=== PATIENT | male | born 1950 | race Caucasian/White ===

== ENCOUNTER 2018-04-26 19:56 | Inpatient (IN) | payer MEDICARE, OTHER ==
[~2018-04-26] VITALS: Ht 170.2 cm; Wt 71.2 kg
--- NOTE | 2018-04-26 20:58 | NUR ---
PT BIBSELF C/O NEEDING INSULIN PER PT, HE IS DIABETIC; PT AAOX4, RESPIRATIONS EVEN AND UNLABORED, NO SOB, NAD NOTED, VSS, PENDING ER PROVIDER JORJE
[2018-04-26 21:58] LABS: APPEARANCE,URINE Clear (CLEAR); BASOPHILS % (AUTO) 0.6 % (0.0-2.0); BILIRUBIN,URINE Negative (NEGATIVE); BLOOD, URINE Trace-lysed Ery/uL (NEGATIVE); COLOR,URINE Yellow (YELLOW); EOSINOPHILS % (AUTO) 3.1 % (0.0-6.0); HEMATOCRIT 41 % (39-51); HEMOGLOBIN 13.6 g/dL (13.5-17.5); KETONES,URINE Trace (NEGATIVE); LEUKOCYTE ESTERASE ,URINE Negative (NEGATIVE); LYMPHOCYTES # (AUTO) 0.9 /CMM (0.8-4.8); LYMPHOCYTES % (AUTO) 11.8 % (20.0-44.0); MEAN CORPUSCULAR HGB CONC 33 g/dl (31.0-36.0); MEAN CORPUSCULAR VOLUME 92 fL (80-96); MONOCYTES # (AUTO) 0.8 /CMM (0.1-1.30); MONOCYTES % (AUTO) 10.3 % (2.0-12.0); NEUTROPHILS # (AUTO) 5.6 /CMM (1.8-8.9); NEUTROPHILS % (AUTO) 74.2 % (43.0-81.0); NITRITE, URINE Negative (NEGATIVE); PLATELET COUNT (AUTO) 236 /CMM (150-450); PROTEIN,URINE 100 mg/dl (NEGATIVE); RED BLOOD CELL COUNT(AUTO) 4.52 MIL/uL (4.5-6.0); UGLUCOSE 100 MG/DL mg/dL (NEGATIVE); WHITE BLOOD COUNT (AUTO) 7.6 K/uL (4.3-11.0)
[2018-04-26 22:05] LABS: CALCIUM, SERUM 8.2 mg/dL (8.5-10.1); CREATININE 1.7 mg/dL (0.6-1.3)
[2018-04-26 22:20] LABS: BACTERIA,URINE Few /HPF (None Seen); RBC,URINE 0-2 /HPF (0-2); SQUAMOUS EPITHELIAL CELL,UR Rare /HPF (None Seen)
--- NOTE | 2018-04-26 22:20 | NUR ---
CLAUDIA WAS PAGED.
[2018-04-26] MEDS ORDERED: IV NS 0.9% 500 ML BAG IV ONE (22:30)
--- NOTE | 2018-04-26 22:35 | NUR ---
PT IS GOING TO 307-2
--- NOTE | 2018-04-26 22:56 | NUR ---
REPORT GIVEN TO ROKC VILLAR FOR NADEEM
--- NOTE | 2018-04-26 23:12 | NUR ---
PT TRANSPORTED TO 3RD FLOOR MS/TELE VIA GURNEY WITH AUTOMOTIVE ALIGNMENT SPECIALIST
[2018-04-26 23:15] VITALS: BP 105/64
--- NOTE | 2018-04-26 23:15 | NUR ---
MS STOCK ORDER LISTER NOTES Patient came to unit via [place], alert, oriented x 4. Breathing even and unlabored. Not in any distress. No complaints as of this time. Patient received with peripheral IV at LAC g#20. Patient is homeless and reports that he uses a walker. Instructed patient to call for assistance. Patient states that he wears a diaper, offered a urinal but declines. Skin assessment done. Patient has sacral redness/ diaper rash- washed with soap and water, kept clean and dry. Patient has also redness in both legs, bilateral foot/heel dryness and cracked heels, and elbow scab. Pictures attached to chart. Wound consult done. Oriented to call paul, placed within easy reach. Bed in lowest, locked position. Will continue to monitor accordingly Addendum: 04/27/18 at 0225 by ROLO WHITAKER RN ADDITIONAL NOTES: Patient does not smoke. Says he quit 10 years ago. He also denies drinking, said he quit 30yrs ago. Patient refuses flu and pneumonia vaccine for fear of getting flu and having adverse reactions. Stated that he had both before and ended up getting flu and pneumonia
[2018-04-26] MEDS ORDERED: Z GUARD REMEDY 2 OZ OINT TP PRN (23:30)
[2018-04-26] MEDS ORDERED: DEXTROSE 50%-WATER 50 ML DISP.SYRIN IV PRN (23:30)
[2018-04-26] MEDS ORDERED: ONDANSETRON HCL/PF 4 MG/2 ML VIAL IVP PRN (23:30)
[2018-04-26] MEDS ORDERED: ZOLPIDEM TARTRATE 5 MG TABLET PO PRN (23:30)
[2018-04-26] MEDS ORDERED: ACETAMINOPHEN 325 MG TABLET PO PRN (23:30)
[2018-04-26] MEDS ORDERED: HYDROMORPHONE INJ 2 MG/ML DISP.SYRIN IV PRN (23:30)
[2018-04-26] MEDS ORDERED: LORAZEPAM INJ 2 MG/ML VIAL IV PRN (23:30)
[2018-04-26] MEDS ORDERED: MAG HYDROX/AL HYDROX/SIMETH 30 ML UDC PO PRN (23:30)
[2018-04-26] MEDS ORDERED: HYDROCODONE/APAP 5/325MG 1 EACH TABLET PO PRN (23:30)
[2018-04-26] MEDS ORDERED: CLONIDINE HCL 0.1 MG TABLET PO PRN (23:30)
[2018-04-26] MEDS ORDERED: MAGNESIUM HYDROXIDE 30 ML UDC PO PRN (23:30)
[2018-04-27] MEDS: BLOOD SUGAR DIAGNOSTIC 1 EACH STRIP IN SCH ×5 (00:12→21:42)
[2018-04-27] MEDS: INSULIN REGULAR, HUMAN 100 UNIT/ML 3 ML VIAL SQ PRN ×4 (00:16→21:45)
--- NOTE | 2018-04-27 00:16 | NUR ---
RN NOTES BSL checked- 134mg/dL. Insulin 2units given per sliding scale. Patient provided with snacks
[2018-04-27] MEDS: IV NS 0.9% 1,000 ML IV PRN ×2 (00:18→21:51)
--- NOTE | 2018-04-27 06:43 | NUR ---
RN NOTES BSL- 130mg/dL. No insulin coverage as per sliding scale
[2018-04-27 06:49] LABS: BASOPHILS % (AUTO) 0.6 % (0.0-2.0); EOSINOPHILS % (AUTO) 4.7 % (0.0-6.0); HEMATOCRIT 37 % (39-51); HEMOGLOBIN 12.1 g/dL (13.5-17.5); LYMPHOCYTES # (AUTO) 0.9 /CMM (0.8-4.8); LYMPHOCYTES % (AUTO) 16.9 % (20.0-44.0); MEAN CORPUSCULAR HGB CONC 33 g/dl (31.0-36.0); MEAN CORPUSCULAR VOLUME 91 fL (80-96); MONOCYTES # (AUTO) 0.7 /CMM (0.1-1.30); MONOCYTES % (AUTO) 12.8 % (2.0-12.0); NEUTROPHILS # (AUTO) 3.6 /CMM (1.8-8.9); PLATELET COUNT (AUTO) 220 /CMM (150-450); RED BLOOD CELL COUNT(AUTO) 4.06 MIL/uL (4.5-6.0); WHITE BLOOD COUNT (AUTO) 5.5 K/uL (4.3-11.0)
[2018-04-27 07:01] LABS: ALBUMIN 2.6 g/dL (3.4-5.0); BILIRUBIN,TOTAL 0.3 mg/dL (0.2-1.0); CALCIUM, SERUM 7.8 mg/dL (8.5-10.1); CREATININE 1.8 mg/dL (0.6-1.3); MAGNESIUM 1.8 mg/dL (1.8-2.4); PHOSPHORUS 3.1 mg/dL (2.5-4.9); POTASSIUM 3.8 mmol/L (3.5-5.1); TOTAL PROTEIN, SERUM 5.8 g/dL (6.4-8.2)
--- NOTE | 2018-04-27 07:28 | NUR ---
RN CLOSING NOTES Patient in bed, alert, oriented x 4. No acute changes overnight. Peripheral IV infusing at 100 mL/hr. All needs attended to. All due medications given as ordered. Safety measures in place, call paul within reach. Bed in low, locked position. Endorsed NADEEM to oncoming RN.
--- NOTE | 2018-04-27 07:45 | NUR ---
m/s intelligence group supervisor: nephro consult seen by dr. smallwood. continue iv fluids as ordered. will continue to monitor.
[2018-04-27 08:00] VITALS: BP_SYST 122; BP_SYST 87; BP_DIAS 58; BP_DIAS 76
--- NOTE | 2018-04-27 08:25 | NUR ---
m/s transfer car operator drier: md visit seen and examined by dr. atkinson with new orders. orders acknowledged.
[2018-04-27] MEDS: PANTOPRAZOLE 40 MG VIAL IV SCH (09:42)
[2018-04-27] MEDS: HEPARIN SODIUM, PORCINE 5000 UNITS/1 ML VIAL SQ SCH ×2 (09:44→21:45)
--- NOTE | 2018-04-27 10:30 | NUR ---
m/s android ui developer: notes noted bed bugs while wound nurse doing study on pt on bed-1. infection control and evs notified and made aware. teaching provided by infection control and environmental services re: bed bugs. informed and teaching provided to pt that we need to clean the room and throw all his belongings due to bed bug noted and pt agreed.
[2018-04-27] MEDS ORDERED: DIVA500T2 PO (11:15)
[2018-04-27] MEDS ORDERED: FURO-145 PO (11:15)
--- NOTE | 2018-04-27 11:50 | NUR ---
m/s blister packing machine tender: notes pt showered and move him to room [facility] with his wallet and watch. Addendum: 04/27/18 at 1447 by PRASHANTH FERREIRA LVN cleanse pt's wallet and watch with sanitizing Addendum: 04/27/18 at 1447 by PRASHANTH FERREIRA LVN cleanse pt's wallet and watch with sani-cloth wipes prior to moving pt to room [facility].
--- NOTE | 2018-04-27 13:30 | NUR ---
m/s procedures rn: notes resting comfortable in bed. no distress noted.
--- NOTE | 2018-04-27 14:00 | NUR ---
m/s cosmetics machine operator: notes dr. atkinson notified thru exchange and informed md that pt home medications need to be reconcile with order to continue depakote 500mg po daily and hold lasix. orders read back and carried out.
--- NOTE | 2018-04-27 15:00 | NUR ---
m/s sight effects specialist: notes pt sounds asleep at this time. no distress noted. call light within reach.
[2018-04-27 16:00] VITALS: BP 122/76
--- NOTE | 2018-04-27 18:30 | NUR ---
m/s automotive brake specialist: notes resting comfortable in bed. no distress noted. needs attended. will continue to monitor.
--- NOTE | 2018-04-27 19:30 | NUR ---
RN MS OPENING NOTES RECEIVED PATIENT IN BED ASLEEP. EASILY AROUSABLE. ALERT AND ORIENTED X3, VERBALLY RESPONSIVE, ABLE TO MAKE NEEDS KNOWN. BREATHING EVEN AND UNLABORED. NO SOB NOTED. TOLERATING ROOM AIR. NO COMPLAINTS OF PAIN OR DISCOMFORT. NO FACIAL GRIMACING. IV ON LEFT AC #20 INTACT AND PATENT. SKIN DRY AND WARM TO TOUCH. AFEBRILE. ALL OTHER NEEDS ATTENDED TO. SAFETY MEASURES IN PLACE. CALL LIGHT WITHIN REACH. WILL CONTINUE TO MONITOR.
[2018-04-27 20:14] VITALS: BP 104/58
[2018-04-28] MEDS: BLOOD SUGAR DIAGNOSTIC 1 EACH STRIP IN SCH ×4 (06:54→21:24)
[2018-04-28] MEDS: INSULIN REGULAR, HUMAN 100 UNIT/ML 3 ML VIAL SQ PRN ×3 (06:55→21:26)
--- NOTE | 2018-04-28 07:14 | NUR ---
RN MS CLOSING NOTES PATIENT RESTING IN BED. NO ACUTE CHANGES THROUGHOUT SHIFT. BREATHING EVEN AND UNLABORED. NO SOB NOTED. TOLERATING ROOM AIR. NO COMPLAINTS OF PAIN OR DISCOMFORT. NO FACIAL GRIMACING. IV ON LEFT AC #20 INTACT AND PATENT WITH NS RUNNING AT 100ML/HR. SKIN DRY AND WARM TO TOUCH. AFEBRILE. ALL OTHER NEEDS ATTENDED TO. SAFETY MEASURES IN PLACE. CALL LIGHT WITHIN REACH. WILL ENDORSE TO ONCOMING NURSE FOR NADEEM.
[2018-04-28 07:18] LABS: BASOPHILS % (AUTO) 0.9 % (0.0-2.0); HEMATOCRIT 36 % (39-51); HEMOGLOBIN 11.6 g/dL (13.5-17.5); LYMPHOCYTES % (AUTO) 21.7 % (20.0-44.0); MEAN CORPUSCULAR HGB CONC 32 g/dl (31.0-36.0); MEAN CORPUSCULAR VOLUME 91 fL (80-96); MONOCYTES # (AUTO) 0.5 /CMM (0.1-1.30); MONOCYTES % (AUTO) 11.6 % (2.0-12.0); NEUTROPHILS # (AUTO) 2.9 /CMM (1.8-8.9); NEUTROPHILS % (AUTO) 61.8 % (43.0-81.0); PLATELET COUNT (AUTO) 183 /CMM (150-450); RED BLOOD CELL COUNT(AUTO) 3.91 MIL/uL (4.5-6.0); WHITE BLOOD COUNT (AUTO) 4.7 K/uL (4.3-11.0)
[2018-04-28 07:32] LABS: CALCIUM, SERUM 8.3 mg/dL (8.5-10.1); CREATININE 1.6 mg/dL (0.6-1.3); POTASSIUM 4.5 mmol/L (3.5-5.1)
[2018-04-28 08:00] VITALS: BP 125/61
[2018-04-28] MEDS: PANTOPRAZOLE 40 MG VIAL IV SCH (08:37)
[2018-04-28] MEDS: DIVALPROEX SODIUM 500 MG TABLET.DR PO SCH (09:23)
[2018-04-28] MEDS: HEPARIN SODIUM, PORCINE 5000 UNITS/1 ML VIAL SQ SCH ×2 (09:24→20:58)
--- NOTE | 2018-04-28 11:35 | NUR ---
IV PULLED OUT,RESTARTED LT. HAND WITH #22 ANGIO.
[2018-04-28] MEDS: IV NS 0.9% 1,000 ML IV PRN (13:34)
--- NOTE | 2018-04-28 14:37 | NUR ---
WOUND CARE CONSULT: PT PRESENTS WITH RT MEDIAL THIGH INCONTINENCE ASSOCIATED SKIN DAMAGE, PRESENT ON ADMISSION. PT IS INCONTINENT BUT IS INDEPENDENT WITH BED MOBILITY. RECOMMENDATIONS MADE FOR SKIN PROTECTION AND SKIN CARE. DISCUSSED WITH NURSING STAFF. WILL SEE PRN. COUCH IN AGREEMENT WITH PLAN OF CARE. Addendum: 04/28/18 at 1438 by JESSICA JANSEN WNDNU Amended: Links added.
[2018-04-28] MEDS ORDERED: MINERAL OIL/PETROLATUM,WHITE 120 GM JAR TP PRN (15:00)
[2018-04-28 16:00] VITALS: BP 136/81
[2018-04-28] MEDS: MUPIROCIN OINT 2% 22 GM TUBE SCH ×2 (16:31→20:55)
--- NOTE | 2018-04-28 17:59 | NUR ---
INFORMED BY [facility] PT. HAS MRSA NARES.BACTROBAN OINT. ORDERED.IN CONTACT ISOL.
[2018-04-28 18:50] VITALS: BP 148/91
--- NOTE | 2018-04-28 18:50 | NUR ---
PT. PUT OYSTER PREPARER LIGHT-C/O SOB.VS TAKEN.148/91HR 79,[id number]%.PT. REQUESTS BREATHING TX.NO BREATHING TX. ORDERED.HOB ELEVATED,PT. WAS LYING FLAT.CALL LIGHT WITHIN REACH.HX OF HEART SURG.X2 PT STATES, AND HAS PACEMAKER, HX OF LASIX USE.02 ON AT 3L.IV CURRENT RATE AT 75ML PER HR.HAS RHONCHI THROUGHOUT.DR. HOWELL CONTACTED,ORDERED CHEST X-RAY.NO FURTHER ORDERS GIVEN.TELETYPESETTER MONITOR INFORMED OF PT. STATUS.
--- NOTE | 2018-04-28 19:10 | NUR ---
PT. INFORMED OF CONVERSATION WITH MD AND ORDERS,A LITTLE ANXIOUS.
--- NOTE | 2018-04-28 19:20 | NUR ---
CHEST X-RAY DONE,AWAITING RESULTS.TO ENDORSE TO ELVIS.NURSE.
--- NOTE | 2018-04-28 19:30 | NUR ---
MS CLEMENCIA INITIAL NOTES RECEIVED REPORT FROM AM NURSE ROWENA AND SEEN PT IN BED AWAKE AND ALERT COMPLAINING OF PAIN ON HIS RIGHT UPPER INNER LEG AND BOTH OF HIS FOOT. PT ON 02 AT 2 LITERS VIA NC NOTICED COUGHING , RHONCHI NOTED UPON AUSCULTATION AND PATIENT ASKING FOR BREATHING TREATMENT . I TOLD HIM I WILL CHECKED IF THERE IS ORDER AND WILL CHECK ALSO THE RESULT OF HIS CHEST X-RAY. WITH IVF INFUSING WELL ON HIS LEFT HAND AND NOTICED HOLD FOR A WHILE BECAUSE OF CONGESTION. ENCOURAGED PT TO STAYED ON SITTING POSITION FOR A WHILE TO PREVENT HIM FROM SOB. KEPT HIM COMFORTABLE AT ALL TIMES. PLACE CALL LIGHT AT REACH. ISOLATION PRECAUTION IMPLEMENTED AND OBSERVED. WILL CONTINUE TO MONITOR.
--- NOTE | 2018-04-28 19:50 | NUR ---
MS CLEMENCIA NOTES NORCO TABLET GIVEN ORDERED. WILL RE-ASSESS LATER.
--- NOTE | 2018-04-28 20:40 | NUR ---
MS CLEMENCIA NOTES CALLED GROUNDS MANAGER MD BECAUSE PT COUGHING A LOT AND NOTED GETTING CONGESTED.SPOKE TO NICOLE JUNIOR /RESIDENTIAL FIELD MANAGER GOT ORDERED NOTED AND CARRIED OUT. CALLED RESPIRATORY THERAPY TO ADMINISTER BREATHING TREATMENT .
[2018-04-28 20:48] VITALS: BP 150/84
[2018-04-28] MEDS ORDERED: ALBUTEROL FS 2.5 MG/3 ML VIAL.NEB NEB PRN (21:00)
[2018-04-28] MEDS ORDERED: IPRATROPIUM NEB FS 0.5 MG/2.5 ML AMPUL.NEB NEB PRN (21:00)
--- NOTE | 2018-04-28 22:00 | NUR ---
MS CLEMENCIA NOTES BLOOD SUGAR 205, 4 UNITS OF INSULIN GIVEN ROBINA SQ ORDERED. SNACKS ALSO SERVED. PT SEEMS NOT IN ANY DISCOMFORT AND DISTRESS AFTER BREATHING TX AND PAIN MEDS GIVEN . WILL CONTINUE MONITORING. PLACE CALL LIGHT AT REACH.
--- NOTE | 2018-04-29 | NUR ---
MS CLEMENCIA NOTES PT SLEEPING COMFORTABLY IN BED WITHOUT ANY ACUTE DISTRESS NOTED. RESPIRATION EVEN AND UNLABORED KEPT HIM WARM AND COMFORTABLE AT ALL TIMES. WILL CONTINUE MONITORING. PLACE CALL LIGHT AT REACH. BED ALARM SET FOR SAFETY.
[2018-04-29] MEDS: BLOOD SUGAR DIAGNOSTIC 1 EACH STRIP IN SCH ×2 (06:15→11:21)
--- NOTE | 2018-04-29 06:15 | NUR ---
MS UI UX DEVELOPER NOTES' BLOOD SUGAR CHECKED DONE 123, NO SIGNS OF HYPO GLYCEMIA NOTED. NO INSULIN GIVEN . WILL CONTINUE MONITORING.
--- NOTE | 2018-04-29 07:26 | NUR ---
MS ANTI AIR WARFARE OPERATIONS OFFICER CLOSING NOTES PT BACK TO SLEEP AFTER MORNING CARE DONE WELL SKIN TREATMENT. BREATHING EVEN AND UNLABORED, NOT IN ANY ACUTE DISTRESS NOTED. ALL DUE MEDS GIVEN AND ALL NEEDS MET. KEPT HIM WARM AND COMFORTABLE AT ALL TIMES. ENDORSE TO AM NURSE.
--- NOTE | 2018-04-29 07:29 | NUR ---
MS RN OPENING NOTES RECEIVED PATIENT IN STABLE CONDITION. IN NO APPARENT DISTRESS. BEDSIDE RAILS ARE UPX2. BED IS LOCKED AND LOWERED. CALL LIGHT IS WITHIN REACH. IV LINE IS INTACT AND PATENT. WILL CONTINUE TO MONITOR PATIENT.
[2018-04-29 08:00] VITALS: BP 155/84
[2018-04-29] MEDS: DIVALPROEX SODIUM 500 MG TABLET.DR PO SCH (08:06)
[2018-04-29] MEDS: PANTOPRAZOLE 40 MG VIAL IV SCH (08:07)
[2018-04-29] MEDS: HEPARIN SODIUM, PORCINE 5000 UNITS/1 ML VIAL SQ SCH (08:10)
[2018-04-29] MEDS: MUPIROCIN OINT 2% 22 GM TUBE SCH (08:24)
[2018-04-29 11:03] LABS: BASOPHILS % (AUTO) 0.5 % (0.0-2.0); HEMATOCRIT 36 % (39-51); HEMOGLOBIN 11.7 g/dL (13.5-17.5); LYMPHOCYTES # (AUTO) 0.8 /CMM (0.8-4.8); LYMPHOCYTES % (AUTO) 14.7 % (20.0-44.0); MEAN CORPUSCULAR HGB CONC 33 g/dl (31.0-36.0); MEAN CORPUSCULAR VOLUME 92 fL (80-96); MONOCYTES # (AUTO) 0.5 /CMM (0.1-1.30); MONOCYTES % (AUTO) 9.1 % (2.0-12.0); NEUTROPHILS # (AUTO) 3.9 /CMM (1.8-8.9); NEUTROPHILS % (AUTO) 71.7 % (43.0-81.0); PLATELET COUNT (AUTO) 183 /CMM (150-450); RED BLOOD CELL COUNT(AUTO) 3.93 MIL/uL (4.5-6.0); WHITE BLOOD COUNT (AUTO) 5.4 K/uL (4.3-11.0)
[2018-04-29 11:09] LABS: CALCIUM, SERUM 8.3 mg/dL (8.5-10.1); CREATININE 1.7 mg/dL (0.6-1.3); POTASSIUM 4.5 mmol/L (3.5-5.1)
[2018-04-29] MEDS: INSULIN REGULAR, HUMAN 100 UNIT/ML 3 ML VIAL SQ PRN (11:22)
--- NOTE | 2018-04-29 15:38 | NUR ---
PATIENT IS REFUSING DISCHARGE. STATES HE WANTS TO SPEAK TO ELECTRICAL PARTS RECONDITIONER. CONTACTED CASE MANAGEMENT. CASE MANAGEMENT WILL SPEAK TO THE PATIENT.
--- NOTE | 2018-04-29 15:38 | NUR ---
PATIENT REFUSED TO HAVE PICTURES TAKEN FROM HIS LEFT HEEL, SACRAL AREA AND PERINEUM. PATIENT STATES "THERES NOTHING WRONG WITH THEM." EXPLAINED THE REASON WHY WE ARE TAKING DISCHARGE PICTURES. PATIENT CONTINUES TO REFUSE.
[2018-04-29 16:00] VITALS: BP 172/97
--- NOTE | 2018-04-29 17:10 | NUR ---
MS REEL HOOKER NOTES DISCHARGED PATIENT IN STABLE CONDITION. IN NO APPARENT DISTRESS. IV LINE AND ID BAND WAS REMOVED. ALL NEEDS WERE MET. EXITCARE WAS SIGNED AND PROVIDED TO 4 SEASONS. BELONGINGS WERE CHECKED AND GIVEN TO THE PATIENT. REPORT GIVEN TO 4 SEASONS. PATIENT WAS ESCORTED OUT OF THE FACILITY VIA GURNEY BY EMT.
[2018-05-17] MEDS ORDERED: BISA10SU11 RC (07:36)
[2018-05-20] MEDS ORDERED: LEVO500T2 PO (10:52)
== END 2018-04-29 17:09 | DRG 674 ==
LOC: ER 20:01 → MED 22:44
PROVIDERS: ADMIT Nurse Practitioner Acute Care; ATTEND Internal Medicine
PROC: 0JBR0ZZ Excision of Left Foot Subcutaneous Tissue and Fascia, Open Approach (ICD-10-PCS; principal; 2018-04-29)
DX: N17.0 Acute kidney failure with tubular necrosis (principal); I50.32 Chronic diastolic (congestive) heart failure; I13.0 Hypertensive heart and chronic kidney disease with heart failure and stage 1 through stage 4 chronic kidney disease, or unspecified chronic kidney disease; L97.428 Non-pressure chronic ulcer of left heel and midfoot with other specified severity; D68.59 Other primary thrombophilia; E86.0 Dehydration; G40.909 Epilepsy, unspecified, not intractable, without status epilepticus; N18.9 Chronic kidney disease, unspecified; E11.22 Type 2 diabetes mellitus with diabetic chronic kidney disease; R53.1 Weakness; E83.51 Hypocalcemia; Z59.0 Homelessness; L60.3 Nail dystrophy; L85.3 Xerosis cutis; Z79.4 Long term (current) use of insulin; E11.21 Type 2 diabetes mellitus with diabetic nephropathy; E11.65 Type 2 diabetes mellitus with hyperglycemia; E88.09 Other disorders of plasma-protein metabolism, not elsewhere classified; L98.8 Other specified disorders of the skin and subcutaneous tissue; L30.4 Erythema intertrigo; S71.101A Unspecified open wound, right thigh, initial encounter; S81.001A Unspecified open wound, right knee, initial encounter; X58.XXXA Exposure to other specified factors, initial encounter; Y93.9 Activity, unspecified; Y92.9 Unspecified place or not applicable
CPT/HCPCS: 36415; 71045-TC; 80048-TC; 80053-TC; 80061-TC; 81000-TC; 82962-TC; 83735-TC; 84100-TC; 85025-TC; 87081-TC; C9113; G0378; J1644; J1815; J7030; J7040

== ENCOUNTER 2018-05-16 22:24 | Inpatient (IN) | payer MEDICARE, OTHER ==
[~2018-05-16] VITALS: Ht 170.2 cm; Wt 69.9 kg
[~2018-05-16 22:24] MED LIST: DIVA500T2 PO; FURO-145 PO
--- NOTE | 2018-05-16 23:05 | NUR ---
PT BIB PA WITH A C/O AMS. PT IS ANSWERING QUESTIONS, BUT APPEARS UPSET. PT IS COOPERATIVE AND AMBULATED TO THE BATHROOM WITH A STEADY GAIT. PT WAS TREATED FALL RISK WHILE AMBULATING, A PRECAUTION. PT WAS PLACED ON THE MONITOR AND CONTINUOUS PULSE OX.
[2018-05-16 23:15] LABS: BASOPHILS # (AUTO) 0.1 /CMM (0.0-0.2); BASOPHILS % (AUTO) 1.1 % (0.0-2.0); EOSINOPHILS % (AUTO) 5.2 % (0.0-6.0); HEMATOCRIT 40 % (39-51); HEMOGLOBIN 13.4 g/dL (13.5-17.5); LYMPHOCYTES # (AUTO) 1.2 /CMM (0.8-4.8); LYMPHOCYTES % (AUTO) 22.1 % (20.0-44.0); MEAN CORPUSCULAR HGB CONC 33 g/dl (31.0-36.0); MEAN CORPUSCULAR VOLUME 91 fL (80-96); MONOCYTES # (AUTO) 0.4 /CMM (0.1-1.30); MONOCYTES % (AUTO) 7.9 % (2.0-12.0); NEUTROPHILS # (AUTO) 3.5 /CMM (1.8-8.9); NEUTROPHILS % (AUTO) 63.7 % (43.0-81.0); PLATELET COUNT (AUTO) 242 /CMM (150-450); RED BLOOD CELL COUNT(AUTO) 4.45 MIL/uL (4.5-6.0); WHITE BLOOD COUNT (AUTO) 5.5 K/uL (4.3-11.0)
--- NOTE | 2018-05-16 23:15 | NUR ---
GOT TELE BED 110
[2018-05-16 23:20] LABS: APPEARANCE,URINE CLEAR (CLEAR); BILIRUBIN,URINE NEGATIVE (NEGATIVE); BLOOD, URINE NEGATIVE Ery/uL (NEGATIVE); COLOR,URINE YELLOW (YELLOW); KETONES,URINE NEGATIVE (NEGATIVE); LEUKOCYTE ESTERASE ,URINE NEGATIVE (NEGATIVE); NITRITE, URINE NEGATIVE (NEGATIVE); PROTEIN,URINE TRACE mg/dl (NEGATIVE); UGLUCOSE NEGATIVE (NEGATIVE); UROBILINOGEN,URINE 0.2 EU/dL (0.2)
[2018-05-16 23:25] LABS: BACTERIA,URINE Few /HPF (None Seen); RBC,URINE 0-2 /HPF (0-2); SQUAMOUS EPITHELIAL CELL,UR Rare /HPF (None Seen); WBC,URINE 0-2 /HPF (0-3)
--- NOTE | 2018-05-16 23:46 | NUR ---
REPORT GIVEN TO ROCK TRUONG/CHG
[2018-05-17] VITALS (7 sets, daily range): BP systolic 125–153; BP diastolic 67–86
[2018-05-17 00:10] LABS: CALCIUM, SERUM 8.4 mg/dL (8.5-10.1); CREATININE 1.6 mg/dL (0.6-1.3); POTASSIUM 4.7 mmol/L (3.5-5.1)
[2018-05-17 00:25] LABS: ALBUMIN 3.3 g/dL (3.4-5.0); BILIRUBIN,DIRECT 0.1 mg/dL (0.0-0.2); BILIRUBIN,TOTAL 0.2 mg/dL (0.2-1.0); TOTAL PROTEIN, SERUM 6.9 g/dL (6.4-8.2)
[2018-05-17] MEDS ORDERED: MAGNESIUM HYDROXIDE 30 ML UDC PO PRN (00:30)
[2018-05-17] MEDS ORDERED: DEXTROSE 50%-WATER 50 ML DISP.SYRIN IV PRN (00:30)
[2018-05-17] MEDS ORDERED: ONDANSETRON HCL/PF 4 MG/2 ML VIAL IVP PRN (00:30)
[2018-05-17] MEDS ORDERED: MAG HYDROX/AL HYDROX/SIMETH 30 ML UDC PO PRN (00:30)
[2018-05-17] MEDS ORDERED: LORAZEPAM 1 MG TABLET PO PRN (00:30)
[2018-05-17] MEDS ORDERED: TEMAZEPAM 15 MG CAPSULE PO PRN (00:30)
--- NOTE | 2018-05-17 00:50 | NUR ---
ADMINISTRATOR PESTICIDE ADMISSION NOTES RECEIVED PATIENT FROM ER VIA S[facility]. DX. ACUTE ENCEPHALOPATHY - POSSIBLY METABOLIC. PATIENT IS ALERT AND ORIENTED X3, VERBALLY RESPONSIVE, ABLE TO MAKE NEEDS KNOWN. BREATHING EVEN AND UNLABORED. NO SOB NOTED. TOLERATING ROOM AIR. NO COMPLAINTS OF PAIN OR DISCOMFORT. NO FACIAL GRIMACING. IV ON RIGHT HAND G#18 INTACT AND PATENT. SKIN DRY AND WARM TO TOUCH. AFEBRILE. SKIN ASSESSMENT RENDERED WITH PICTURES TAKEN AND PLACED IN CHART. BELONGINGS ACCOUNTED FOR. ORIENTED TO THE USE OF UNIT AMENITIES. SAFETY MEASURES IN PLACE. CALL LIGHT WITHIN REACH. WILL CONTINUE TO MONITOR.
[2018-05-17] MEDS ORDERED: IV NS 0.9% 1,000 ML BAG IV ONE (01:00)
[2018-05-17] MEDS ORDERED: MULT-1185 PO (01:58)
[2018-05-17] MEDS ORDERED: AMIN30LI25 PO (01:58)
[2018-05-17] MEDS ORDERED: ALBU2.5V13 NEB (01:58)
[2018-05-17] MEDS ORDERED: DIVA500T4 PO (01:58)
[2018-05-17] MEDS ORDERED: IPRA0.2S9 IH (01:58)
[2018-05-17] MEDS ORDERED: CRAN1CAP6 PO (01:58)
[2018-05-17] MEDS ORDERED: SENN-168 PO (01:58)
[2018-05-17] MEDS: BLOOD SUGAR DIAGNOSTIC 1 EACH STRIP IN SCH ×4 (06:31→21:28)
[2018-05-17] MEDS: INSULIN REGULAR, HUMAN 100 UNIT/ML 3 ML VIAL SQ PRN (06:32)
--- NOTE | 2018-05-17 06:54 | NUR ---
BUGGY DRIVER CLOSING NOTES PATIENT RESTING IN BED. NO ACUTE CHANGES THROUGHOUT SHIFT. BREATHING EVEN AND UNLABORED. TOLERATING ROOM AIR. NO SOB. NO COMPLAINTS OF PAIN OR DISCOMFORT. NO FACIAL GRIMACING. IV ON RIGHT HAND INTACT AND PATENT. SKIN DRY AND WARM TO TOUCH. AFEBRILE. KEPT CLEAN DRY AND COMFORTABLE. ALL OTHER NEEDS ATTENDED TO. SAFETY MEASURES IN PLACE. CALL LIGHT WITHIN REACH. WILL ENDORSE TO ONCOMING NURSE FOR NADEEM.
[2018-05-17] MEDS ORDERED: NA P133E RC (07:36)
[2018-05-17] MEDS ORDERED: BISA10SU8 RC (07:36)
[2018-05-17] MEDS ORDERED: ACET-868 PO (07:36)
[2018-05-17] MEDS ORDERED: ACET-2605 PO (07:36)
[2018-05-17] MEDS ORDERED: MAGN400O6 PO (07:36)
[2018-05-17] MEDS ORDERED: BLOO-668 IN (07:36)
[2018-05-17] MEDS: PANTOPRAZOLE 40 MG TABLET.DR PO SCH (08:12)
--- NOTE | 2018-05-17 08:42 | NUR ---
BINDER TECHNICIAN OPENING NOTES PATIENT RECEIVED AWAKE AND IN BED. A/O X 2-3. NO ACUTE DISTRESS, BREATHING EVEN AND UNLABORED, TOLERATING ROOM AIR. NO SOB. NO COMPLAINTS OF PAIN OR DISCOMFORT. NO FACIAL GRIMACING. RH IV INTACT AND PATENT SKIN DRY AND WARM TO TOUCH. AFEBRILE. CLEAN DRY AND COMFORTABLE. SAFETY MEASURES IN PLACE. BED IN LOW LOCKED POSITION, CALL LIGHT WITHIN REACH. WILL CONTINUE TO MONITOR.
[2018-05-17] MEDS ORDERED: NS 0.9% IV ONE (15:00)
[2018-05-17] MEDS ORDERED: BISACODYL SUPP (10 MG) 10 MG/SUPP.RECT SUPP.RECT RC PRN (15:00)
[2018-05-17] MEDS ORDERED: VALPROATE IV ONE (15:00)
[2018-05-17] MEDS ORDERED: IPRATROPIUM NEB FS 0.5 MG/2.5 ML AMPUL.NEB IH PRN (15:00)
[2018-05-17] MEDS ORDERED: NA PHOS,M-B/NA PHOS,DI-BA 1 EA ENEMA RC PRN (15:00)
[2018-05-17] MEDS ORDERED: ALBUTEROL FS 2.5 MG/0.5 ML VIAL.NEB NEB PRN (15:00)
[2018-05-17] MEDS: PROSTAT (PYXIS) 30 ML UDC PO SCH (17:56)
--- NOTE | 2018-05-17 20:46 | NUR ---
QUALITY IMPROVEMENT COORDINATOR (RN) NOTES RECEIVED PT ON BED. ON ROOM AIR, NO RESPIRATORY DISTRESS NOTED. ON TELE MONITOR A PACING. IV ACCESS RIGHT HANG G18, LOOSE, DANGLING, IV ACCESS REMOVED, NO BLEEDING NOTED. PER PT INSERT IV LATER. SEIZURE PRECAUTION OBSERVED, HEAD OF BED ELEVATED. SIDE RAILS UP. CALL LIGHT WITHIN REACH. BED ALARM ON. WILL CONTINUE TO MONITOR PT CLOSELY.
--- NOTE | 2018-05-17 20:48 | NUR ---
MORNING SHOW NEWSCAST PRODUCER CLOSING NOTES PATIENT RESTING IN BED. NO ACUTE CHANGES THROUGHOUT SHIFT. BREATHING EVEN AND UNLABORED. TOLERATING ROOM AIR. NO SOB. NO COMPLAINTS OF PAIN OR DISCOMFORT. NO FACIAL GRIMACING. IV ON RIGHT HAND INTACT AND PATENT. SKIN DRY AND WARM TO TOUCH. AFEBRILE. KEPT CLEAN DRY AND COMFORTABLE. ALL OTHER NEEDS ATTENDED TO. SAFETY MEASURES IN PLACE. CALL LIGHT WITHIN REACH. WILL ENDORSE TO ONCOMING NURSE FOR NADEEM.
[2018-05-17] MEDS: SENNOSIDES 8.6 MG TABLET PO SCH (21:29)
--- NOTE | 2018-05-17 21:29 | NUR ---
INTERNET SALES CONSULTANT NOTES PT REFUSING INSULIN COVERAGE. EXPLAINED RISK AND BENEFITS. PT STILL REFUSED.
--- NOTE | 2018-05-17 21:34 | NUR ---
LEAD ORACLE DEVELOPER NOTES PRIMARY RN AND ASSET PROTECTION SPECIALIST UNABLE TO INSERT IV. PT REFUSED IV ACCESS THIS TIME. EXPLAINED RISK AND BENEFITS. PT STILL REFUSED. WILL ASK PT AGAIN LATER. WILL MONITOR PT CLOSELY.
--- NOTE | 2018-05-17 21:42 | NUR ---
PARLIAMENTARY COUNSEL NOTES UNABLE TO REACH NEUROLOGIST FOR DEPAKOTE ORDERS. CHARGE NURSE INFORMED.SEIZURE PRECAUTION OBSERVED. WILL MONITOR PT CLOSELY.
--- NOTE | 2018-05-17 22:45 | NUR ---
ON SITE WASTEWATER SYSTEMS TECHNICIAN NOTES PT REFUSING IV ACCESS. EX PLAINED RISK AND BENEFITS PT STILL REFUSED. DR HOWELL INFORMED.
[2018-05-18 04:00] VITALS: BP 129/74
--- NOTE | 2018-05-18 07:06 | NUR ---
WOUND CARE CONSULT WOUND CARE RECEIVED CONSULT FOR SACRAL REDNESS, ARNULFO AREA REDNESS AND BILATERAL LOWER EXTREMITY RASHES. WOUND CARE WILL DEFER CONSULT AND ALL TREATMENT PLANS TO PLASTIC SURGICAL TEAM WHO ARE CURRENTLY FOLLOWING THIS PATIENT. PATIENT WITH NEISHA AT 21, WILL SEE PRN.
--- NOTE | 2018-05-18 07:22 | NUR ---
MS RN NOTES NO ACUTE CHANGES NOTED DURING THE SHIFT. PROVIDED COMFORT AND SAFETY. REFUSING IV ACCESS AND LABORATORY .WILL ENDORSE TO THE AM NURSE FOR CONTINUITY OF CARE.
[2018-05-18] MEDS ORDERED: Z GUARD REMEDY 2 OZ OINT TP PRN (07:30)
--- NOTE | 2018-05-18 07:40 | NUR ---
MS WILKERSON OPENING NOTE RECEIVED PATIENT IN BED. ALERT ORIENTED X3. ON ROOM AIR, TOLERATING WELL. IN NO APPARENT DISTRESS OR DISCOMFORT AT THIS TIME. RESPIRATIONS EVEN AND UNLABORED. DENIES CHEST PAIN OR SOB. PATIENT IS ABLE TO COMMUNICATE NEEDS. NO IV ACCESS PRESENT, MD AWARE,. Addendum: 05/18/18 at 1053 by FRANCISCO NELSON RN PATIENT KEPT CLEAN AND COMFORTABLE, SAFETY MEASURES IN PLACE, BED IN LOW LOCKED POSITION SIDE RAILS UP X2, CALL LIGHT WITHIN EASY REACH. WILL CONTINUE TO MONITOR.
[2018-05-18 08:00] VITALS: BP_SYST 149; BP_DIAS 62; BP_DIAS 82
[2018-05-18 08:32] LABS: BASOPHILS # (AUTO) 0.1 /CMM (0.0-0.2); EOSINOPHILS % (AUTO) 6.6 % (0.0-6.0); HEMATOCRIT 43 % (39-51); HEMOGLOBIN 13.8 g/dL (13.5-17.5); LYMPHOCYTES # (AUTO) 1.2 /CMM (0.8-4.8); LYMPHOCYTES % (AUTO) 19.8 % (20.0-44.0); MEAN CORPUSCULAR HGB CONC 32 g/dl (31.0-36.0); MEAN CORPUSCULAR VOLUME 92 fL (80-96); MONOCYTES # (AUTO) 0.5 /CMM (0.1-1.30); NEUTROPHILS # (AUTO) 3.8 /CMM (1.8-8.9); NEUTROPHILS % (AUTO) 64.6 % (43.0-81.0); PLATELET COUNT (AUTO) 193 /CMM (150-450); RED BLOOD CELL COUNT(AUTO) 4.68 MIL/uL (4.5-6.0); WHITE BLOOD COUNT (AUTO) 5.9 K/uL (4.3-11.0)
[2018-05-18] MEDS: BLOOD SUGAR DIAGNOSTIC 1 EACH STRIP IN SCH ×4 (08:39→22:34)
[2018-05-18] MEDS: ACETAMINOPHEN 325 MG TABLET PO PRN (08:40)
[2018-05-18] MEDS: MULTIVIT W/MINERALS 1 TAB TABLET PO SCH (08:40)
[2018-05-18] MEDS: PANTOPRAZOLE 40 MG TABLET.DR PO SCH (08:40)
[2018-05-18] MEDS: Z GUARD REMEDY 2 OZ OINT TP SCH (08:41)
[2018-05-18] MEDS: PROSTAT (PYXIS) 30 ML UDC PO SCH ×2 (08:41→16:41)
[2018-05-18 08:47] LABS: ALBUMIN 3.2 g/dL (3.4-5.0); BILIRUBIN,TOTAL 0.3 mg/dL (0.2-1.0); CALCIUM, SERUM 8.5 mg/dL (8.5-10.1); CREATININE 1.4 mg/dL (0.6-1.3); MAGNESIUM 1.8 mg/dL (1.8-2.4); PHOSPHORUS 3.3 mg/dL (2.5-4.9); POTASSIUM 4.7 mmol/L (3.5-5.1)
[2018-05-18] MEDS: INSULIN REGULAR, HUMAN 100 UNIT/ML 3 ML VIAL SQ PRN ×2 (08:47→23:08)
[2018-05-18 08:50] LABS: THYROID STIMULATING HORMONE 6.863 uIU/mL (0.358-3.74)
[2018-05-18] MEDS ORDERED: Medication Not On Formulary EA (Vit C/Vitamin E Acetate/Cranb (Cranberry Concentrate Sof PO SCH (09:00)
[2018-05-18] MEDS ORDERED: DIVALPROEX SODIUM 250 MG TABLET.DR PO SCH (09:30)
[2018-05-18] MEDS ORDERED: VALPROATE 500 MG in IV NS 0.9% 100 ML IV ONE (12:00)
--- NOTE | 2018-05-18 12:39 | NUR ---
PER DR. ISLAS CHANGE ORDER FOR PICC LINE TO MIDLINE INSERTION. NOTED AND CARRIED OUT. HUMAN SERVICE TECHNICIAN FRANCISCO NOTIFIED. AWAITING MIDLINE INSERTION.
[2018-05-18] MEDS ORDERED: VALPROATE 500 MG in IV NS 0.9% 100 ML IV SCH (13:00)
[2018-05-18] MEDS: LEVOFLOXACIN (500MG) 500 MG TABLET PO SCH (13:03)
[2018-05-18] MEDS ORDERED: DIVALPROEX SODIUM 250 MG TABLET.DR PO ONE (13:30)
[2018-05-18 16:00] VITALS: BP 128/72
[2018-05-18] MEDS: DIVALPROEX SODIUM 250 MG TABLET.DR PO SCH (16:34)
--- NOTE | 2018-05-18 18:27 | NUR ---
MS RN CLOSING NOTE PATIENT IN BED. ALERT ORIENTED X3. ON ROOM AIR, TOLERATING WELL. IN NO APPARENT DISTRESS OR DISCOMFORT AT THIS TIME. RESPIRATIONS EVEN AND UNLABORED. DENIES CHEST PAIN OR SOB. PATIENT IS ABLE TO COMMUNICATE NEEDS. RIGHT UPPER ARM MIDLINE 18G IVC, SL, PATENT AND INTACT. PATIENT KEPT CLEAN AND COMFORTABLE, ALL NEEDS ATTENDED, ORDERS RENDERED, TUNRING AND REPOSITIONING REINFORCED PER PROTOCOL. SAFETY MEASURES IN PLACE, BED IN LOW LOCKED POSITION SIDE RAILS UP X2, CALL LIGHT WITHIN EASY REACH. WILL ENDORSE TO PM NURSE FOR NADEEM.
[2018-05-18 20:00] VITALS: BP 141/83
--- NOTE | 2018-05-18 20:00 | NUR ---
RUDY RN NOTE PATIENT IN BED. ALERT ORIENTED X3. ON ROOM AIR, TOLERATING WELL. IN NO APPARENT DISTRESS OR DISCOMFORT AT THIS TIME. RESPIRATIONS EVEN AND UNLABORED. DENIES CHEST PAIN OR SOB. PATIENT IS ABLE TO COMMUNICATE NEEDS. RIGHT UPPER ARM MIDLINE 18G IVC, SL, PATENT AND INTACT. SAFETY MEASURES IN PLACE, BED IN LOW LOCKED POSITION SIDE RAILS UP X2, CALL LIGHT WITHIN EASY REACH. WILL CONTINUE TO MONITOR PATIENT.
--- NOTE | 2018-05-18 22:20 | NUR ---
RN NOTES PATIENT IS STABLE , NO ACUTE CHANGES NOTED, NO SOB NOTES. PATIENT'S REPORT IS GIVEN TO CARLYN WILKERSON FOR FACTORER.
[2018-05-18] MEDS: SENNOSIDES 8.6 MG TABLET PO SCH (22:34)
--- NOTE | 2018-05-18 23:00 | NUR ---
MS RN NOTES Assume care of patient. Transferred patient to room 117-1 per CN. Patient remained stable, comfortable on bed. No discomfort noted at this time. Will continue to monitor accordingly.
[2018-05-19 04:00] VITALS: BP 130/89
[2018-05-19 06:28] LABS: BASOPHILS # (AUTO) 0.1 /CMM (0.0-0.2); BASOPHILS % (AUTO) 0.8 % (0.0-2.0); EOSINOPHILS % (AUTO) 6.4 % (0.0-6.0); HEMATOCRIT 43 % (39-51); HEMOGLOBIN 13.8 g/dL (13.5-17.5); LYMPHOCYTES # (AUTO) 1.4 /CMM (0.8-4.8); LYMPHOCYTES % (AUTO) 20.5 % (20.0-44.0); MEAN CORPUSCULAR HGB CONC 32 g/dl (31.0-36.0); MEAN CORPUSCULAR VOLUME 92 fL (80-96); MONOCYTES # (AUTO) 0.6 /CMM (0.1-1.30); MONOCYTES % (AUTO) 8.5 % (2.0-12.0); NEUTROPHILS # (AUTO) 4.2 /CMM (1.8-8.9); NEUTROPHILS % (AUTO) 63.8 % (43.0-81.0); PLATELET COUNT (AUTO) 221 /CMM (150-450); RED BLOOD CELL COUNT(AUTO) 4.66 MIL/uL (4.5-6.0); WHITE BLOOD COUNT (AUTO) 6.6 K/uL (4.3-11.0)
--- NOTE | 2018-05-19 06:31 | NUR ---
MS RN CLOSING NOTES Patient asleep on bed, no discomfort noted. Afebrile the whole shift, no new unusualities noted. All nursing needs attended. Kept bed low and locked. Call light at bedside. Endorsed to the next shift.
[2018-05-19 06:54] LABS: CALCIUM, SERUM 8.6 mg/dL (8.5-10.1); CREATININE 1.6 mg/dL (0.6-1.3); MAGNESIUM 1.9 mg/dL (1.8-2.4); PHOSPHORUS 3.6 mg/dL (2.5-4.9); POTASSIUM 4.6 mmol/L (3.5-5.1)
--- NOTE | 2018-05-19 07:00 | NUR ---
MS RN OPENING NOTES RECEIVED PT IN BED, A/O X3. PT ON RA, TOLERATING WELL. O2 SAT WNL. WOLF MIDLINE C/D/P/I. NO S/SX OF DISTRESS AT THIS TIME. ASPIRATION PRECAUTIONS MAINTAINED. HOB ELEVATED. LUNG SOUNDS CLEAR. ACTIVE BS. PERRLA. SKIN ON FEET NOTED TO BE FLAKY/DRY. EXTREMITIES OFFLOADED. PT TOLERATING DIET WELL AT THIS TIME. BED ALARM ON. CALL LIGHT IN REACH. WILL CONT TO MONITOR.
[2018-05-19] MEDS: BLOOD SUGAR DIAGNOSTIC 1 EACH STRIP IN SCH ×4 (07:44→22:21)
[2018-05-19 08:00] VITALS: BP 134/98
[2018-05-19] MEDS: MULTIVIT W/MINERALS 1 TAB TABLET PO SCH (08:31)
[2018-05-19] MEDS: DIVALPROEX SODIUM 250 MG TABLET.DR PO SCH ×2 (08:31→16:56)
[2018-05-19] MEDS: PANTOPRAZOLE 40 MG TABLET.DR PO SCH (08:31)
[2018-05-19] MEDS: Z GUARD REMEDY 2 OZ OINT TP SCH (08:36)
[2018-05-19] MEDS: PROSTAT (PYXIS) 30 ML UDC PO SCH ×2 (08:39→16:57)
[2018-05-19] MEDS: INSULIN REGULAR, HUMAN 100 UNIT/ML 3 ML VIAL SQ PRN ×2 (10:00→22:22)
[2018-05-19] MEDS: LEVOFLOXACIN (500MG) 500 MG TABLET PO SCH (11:40)
[2018-05-19 16:00] VITALS: BP 132/84
--- NOTE | 2018-05-19 18:31 | NUR ---
MS RN CLOSING NOTE PATIENT IN BED. ALERT ORIENTED X3. ON ROOM AIR, TOLERATING WELL. IN NO APPARENT DISTRESS OR DISCOMFORT AT THIS TIME. RESPIRATIONS EVEN AND UNLABORED. DENIES CHEST PAIN OR SOB. PATIENT IS ABLE TO COMMUNICATE NEEDS. RIGHT UPPER ARM MIDLINE 18G IVC, SL, PATENT AND INTACT. PATIENT KEPT CLEAN AND COMFORTABLE, ALL NEEDS ATTENDED. SAFETY MEASURES IN PLACE, BED IN LOW LOCKED POSITION SIDE RAILS UP X2, CALL LIGHT WITHIN EASY REACH. WILL ENDORSE TO PM NURSE FOR NADEEM.
--- NOTE | 2018-05-19 20:00 | NUR ---
MS RN NOTES RECEIVED PTS IN BED AWAKE A/OX3 FORGETFUL, ABLE TO MAKE NEEDS KNOWN, PTS IS AMBULATORY , V./S STABLE AFEBRILE ,ON MS STATUS PTS WITH NO SOB NO DISTRESS NOTED ,ON R/A SATING 96% ALL DUE MEDS GIVEN ORDERED , KEPT PTS CLEAN DRY AND COMFORTABLE .WILL CONTINUE TO MONITOR PTS.
[2018-05-19] MEDS: SENNOSIDES 8.6 MG TABLET PO SCH (22:19)
--- NOTE | 2018-05-20 02:00 | NUR ---
MS RN NOTES BLOOD SUGAR FOR 10PM IS 116 MG/DL NO COVERAGE GIVEN PER SLIDING SCALE . PTS ON PO DIET SNACKS SERVED.
[2018-05-20] MEDS: ACETAMINOPHEN 325 MG TABLET PO PRN (04:59)
--- NOTE | 2018-05-20 07:00 | NUR ---
MS RN OPENING NOTES RECEIVED PT IN BED, A/O X3. PT ON RA, TOLERATING WELL. O2 SAT WNL. WOLF MIDLINE C/D/P/I. NO S/SX OF DISTRESS AT THIS TIME. ASPIRATION PRECAUTIONS MAINTAINED. HOB ELEVATED. LUNG SOUNDS CLEAR. ACTIVE BS. PERRLA. EXTREMITIES OFFLOADED. PT TOLERATING DIET WELL AT THIS TIME. BED ALARM ON. CALL LIGHT IN REACH. WILL CONT TO MONITOR.
[2018-05-20] MEDS: PANTOPRAZOLE 40 MG TABLET.DR PO SCH (07:49)
[2018-05-20] MEDS: BLOOD SUGAR DIAGNOSTIC 1 EACH STRIP IN SCH ×2 (07:54→12:03)
[2018-05-20 08:53] LABS: BASOPHILS # (AUTO) 0.1 /CMM (0.0-0.2); BASOPHILS % (AUTO) 1.1 % (0.0-2.0); EOSINOPHILS % (AUTO) 8.5 % (0.0-6.0); HEMATOCRIT 44 % (39-51); HEMOGLOBIN 14.4 g/dL (13.5-17.5); LYMPHOCYTES # (AUTO) 1.4 /CMM (0.8-4.8); LYMPHOCYTES % (AUTO) 24.4 % (20.0-44.0); MEAN CORPUSCULAR HGB CONC 33 g/dl (31.0-36.0); MEAN CORPUSCULAR VOLUME 91 fL (80-96); MONOCYTES # (AUTO) 0.6 /CMM (0.1-1.30); MONOCYTES % (AUTO) 10.9 % (2.0-12.0); NEUTROPHILS # (AUTO) 3.1 /CMM (1.8-8.9); NEUTROPHILS % (AUTO) 55.1 % (43.0-81.0); PLATELET COUNT (AUTO) 234 /CMM (150-450); WHITE BLOOD COUNT (AUTO) 5.6 K/uL (4.3-11.0)
[2018-05-20] MEDS: PROSTAT (PYXIS) 30 ML UDC PO SCH (09:09)
[2018-05-20] MEDS: DIVALPROEX SODIUM 250 MG TABLET.DR PO SCH (09:09)
[2018-05-20] MEDS: MULTIVIT W/MINERALS 1 TAB TABLET PO SCH (09:09)
[2018-05-20] MEDS: Z GUARD REMEDY 2 OZ OINT TP SCH (09:18)
[2018-05-20 09:32] LABS: FREE PSA 0.8 ng/mL (0.00-45); PROSTATE SPECIFIC ANTIGEN SCR 4.79 ng/mL (0.00-4.00)
[2018-05-20 09:36] LABS: POTASSIUM 4.7 mmol/L (3.5-5.1)
[2018-05-20 09:37] LABS: ALBUMIN 3.3 g/dL (3.4-5.0); BILIRUBIN,TOTAL 0.4 mg/dL (0.2-1.0); CALCIUM, SERUM 8.8 mg/dL (8.5-10.1); CREATININE 1.7 mg/dL (0.6-1.3); MAGNESIUM 1.9 mg/dL (1.8-2.4); PHOSPHORUS 3.7 mg/dL (2.5-4.9); TOTAL PROTEIN, SERUM 7.2 g/dL (6.4-8.2)
[2018-05-20] MEDS ORDERED: LEVO500T2 PO (10:52)
[2018-05-20] MEDS: LEVOFLOXACIN (500MG) 500 MG TABLET PO SCH (12:25)
--- NOTE | 2018-05-20 14:25 | NUR ---
MS RN NOTES REPORT CALLED TO ROCK LIN AT [facility] FOR TRANSFER TO SNF
--- NOTE | 2018-05-20 14:35 | NUR ---
MS RN NOTES PT LEFT ON GURNEY WITH AMBULANCE CREW. ID BAND/MIDLINE REMOVED. VS WNL. NO S/SX OF DISTRESS NOTED. [id number] WITH PATIENT. ALL NEEDS ATTENDED TO.
[2018-05-20] MEDS ORDERED: VALPROATE 500 MG in IV NS 0.9% 100 ML IV STA (15:00)
[2018-05-20] MEDS ORDERED: DIVALPROEX SODIUM 250 MG TABLET.DR PO SCH (22:00)
== END 2018-05-20 15:57 | DRG 682 ==
LOC: ER 22:26 → TELE1 23:18 → MEDSG1 05-18 06:00
PROVIDERS: ADMIT Nurse Practitioner Acute Care; ATTEND Nurse Practitioner Acute Care
PROC: 05H533Z Insertion of Infusion Device into Right Subclavian Vein, Percutaneous Approach (ICD-10-PCS; principal; 2018-05-18)
PROC: B546ZZA Ultrasonography of Right Subclavian Vein, Guidance (ICD-10-PCS; 2018-05-18)
DX: N17.0 Acute kidney failure with tubular necrosis (principal); J15.9 Unspecified bacterial pneumonia; G93.41 Metabolic encephalopathy; I50.33 Acute on chronic diastolic (congestive) heart failure; I13.0 Hypertensive heart and chronic kidney disease with heart failure and stage 1 through stage 4 chronic kidney disease, or unspecified chronic kidney disease; G40.909 Epilepsy, unspecified, not intractable, without status epilepticus; N18.9 Chronic kidney disease, unspecified; E83.51 Hypocalcemia; E11.22 Type 2 diabetes mellitus with diabetic chronic kidney disease; I25.10 Atherosclerotic heart disease of native coronary artery without angina pectoris; L98.9 Disorder of the skin and subcutaneous tissue, unspecified; R23.8 Other skin changes; F39 Unspecified mood [affective] disorder; F01.50 Vascular dementia, unspecified severity, without behavioral disturbance, psychotic disturbance, mood disturbance, and anxiety; N28.1 Cyst of kidney, acquired; Z59.0 Homelessness; N40.0 Benign prostatic hyperplasia without lower urinary tract symptoms; Z79.899 Other long term (current) drug therapy; Z95.0 Presence of cardiac pacemaker; E86.1 Hypovolemia
CPT/HCPCS: 36415; 36569; 70450-TC; 71045-TC; 76770-TC; 80048-TC; 80053-TC; 80076-TC; 80164-TC; 80305; 81000-TC; 82962-TC; 83605-TC; 83735-TC; 84100-TC; 84153-TC; 84154-TC; 84443-TC; 84484-TC; 85025-TC; 85730-TC; 87040-TC; 87070-TC; 87081-TC; 93307-TC; G0378; J1815; J3490; J7030